=== PATIENT | male | born 2000 | race Caucasian/White ===

== ENCOUNTER → 2019-07-02 | Outpatient (REF) | payer OTHER ==
[2019-07-02 22:16] LABS: CHLAMYDIA DNA AMPLIFICATION POSITIVE (NEGATIVE); GC DNA AMPLIFICATION NEGATIVE (NEGATIVE)
== END ==
LOC: M LAB REF 09:56
PROVIDERS: ATTEND Physician Assistant
DX: R30.0 Dysuria (principal)

== ENCOUNTER 2019-10-03 15:57 | Emergency (ER) | payer BC, OTHER ==
[~2019-10-03] VITALS: Ht 177.8 cm; Wt 88.2 kg
[2019-10-03] MEDS ORDERED: KETOROLAC 30 MG/ML 1ML VIAL IV ONE (16:15)
[2019-10-03] MEDS ORDERED: ISOVUE-370 76% 100ML VIAL As Ordered ONE (16:34)
[2019-10-03 16:36] LABS: BASO # 0.1 10^3/uL (0.0-0.2); BASO % 0.6 % (0.0-1.0); EOS # 0.2 10^3/uL (0.0-0.5); EOS % 1.6 % (0.0-3.0); HEMATOCRIT 47.7 % (42.0-52.0); HEMOGLOBIN 16.8 g/dl (13.5-17.5); LYMPH # 1.2 10^3/uL (1.5-5.0); LYMPH % 11.7 % (24.0-44.0); MEAN CORPUSCULAR HEMOGLOBIN 30.6 pg (27.0-33.0); MEAN CORPUSCULAR HGB CONC 35.2 g/dl (32.0-36.5); MEAN CORPUSCULAR VOLUME 86.9 fl (80.0-96.0); MONO # 0.7 10^3/uL (0.0-0.8); MONO % 6.9 % (0.0-5.0); NEUTROPHILS # 8.1 10^3/uL (1.5-8.5); NEUTROPHILS % 78.8 % (36.0-66.0); PLATELET COUNT, AUTOMATED 249 10^3/uL (150-450); RED BLOOD COUNT 5.49 10^6/uL (4.30-6.10); WHITE BLOOD COUNT 10.2 10^3/uL (4.0-10.0)
[2019-10-03 17:07] LABS: ALBUMIN 4.2 GM/DL (3.2-5.2); BILIRUBIN,DIRECT 0.1 MG/DL (0.0-0.2); BILIRUBIN,TOTAL 0.8 MG/DL (0.2-1.0); TOTAL PROTEIN 7.4 GM/DL (6.4-8.2)
[2019-10-03 17:47] VITALS: BP 129/74
--- NOTE | 2019-10-03 17:52 | REP ---
CT ABDOMEN AND PELVIS WITH IV BUT WITHOUT ORAL CONTRAST: HISTORY: Right lower quadrant abdomen pain. CT CONTRAST DOSE: 100 mL of intravenous Isovue 370. No comparison study. 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 Normal bowel gas pattern. The lung bases are clear. There is no evidence of pleural effusion or upper abdominal ascites. The liver and the spleen are normal in size, homogeneous in texture. No abnormalities noted in the gallbladder. Pancreas is unremarkable. Normal adrenal glands are seen. The kidneys enhance symmetrically and are morphologically intact on both sides. No retroperitoneal mass or adenopathy is seen. There are scattered normal-sized borderline small bowel mesenteric lymph nodes. A normal air-filled noninflamed appendix is noted in the right lower quadrant. There is no evidence of free intraperitoneal air. There is a small quantity of fluid in the pelvic reflections. Urinary bladder is unremarkable. No abdominal wall defect is seen. Bone window settings show no bony destructive lesion. IMPRESSION: Normal appendix is seen. There is a small quantity of fluid in the pelvis. Somewhat prominent small bowel mesenteric lymph nodes raise a question of mesenteric adenitis. Otherwise negative. Electronically Signed by Willam Moise MD 10/03/2019 05:54 P
== END 2019-10-03 17:51 | disposition home or self-care (01) ==
LOC: M ED 15:57
DX: I88.0 Nonspecific mesenteric lymphadenitis (principal); R10.31 Right lower quadrant pain
CPT/HCPCS: 74177; 80047; 80076; 81001; 83690; 85025; 87880; 96374; 99284; J1885; Q9967

== ENCOUNTER → 2024-08-28 | Outpatient (CLI) | payer MEDICAID, SELFPAY | LOC: M OUTALCOH 07:31 | PROVIDERS: ATTEND Psychiatry & Neurology Psychiatry | DX: F14.20 Cocaine dependence, uncomplicated (principal); F10.20 Alcohol dependence, uncomplicated; Z72.0 Tobacco use ==

== ENCOUNTER → 2024-09-03 | Outpatient (RCR) | payer MEDICAID, SELFPAY | LOC: M OUTALCOH 07:58 | PROVIDERS: ATTEND Psychiatry & Neurology Psychiatry | DX: F14.20 Cocaine dependence, uncomplicated (principal); F10.20 Alcohol dependence, uncomplicated; Z72.0 Tobacco use ==

== ENCOUNTER 2024-10-02 08:00 | Outpatient (RCR) | payer MEDICAID, SELFPAY | END 2024-10-03 | LOC: M OUTALCOH 08:00 | PROVIDERS: ATTEND Psychiatry & Neurology Psychiatry | DX: F14.20 Cocaine dependence, uncomplicated (principal); F10.20 Alcohol dependence, uncomplicated; Z72.0 Tobacco use ==